=== PATIENT | male | born 1970 | race Caucasian/White ===

== ENCOUNTER 2018-06-08 16:19 | Emergency (ER) | payer BC ==
--- NOTE | 2018-06-08 16:38 | PDOC ---
History of Present Illness - General History Source: Patient Exam Limitations: No Limitations - History of Present Illness Initial Comments: 06/08/18 16:39 The patient is a 48 year old male with no significant PMH who presents to the ER complaining of chest pain for the past 3 days. Patient states he was tugging on his weight belt when he noticed left sided chest pain and felt a "pop." Patient reports the pain is exacerbated when rotating the left arm outward. The patient denies shortness of breath, headache and dizziness. Denies fever, chills, nausea, vomit, diarrhea and constipation. Denies dysuria, frequency, urgency and hematuria. Allergies: NKA Past surgical history: None reported. Social history: No reported alcohol, drug or cigarette use. <Meera Hampton - Last Filed: 06/08/18 16:48> <Cathie Barber - Last Filed: 06/08/18 17:47> - General Chief Complaint: Injury Stated Complaint: left chest injury Time Seen by Provider: 06/08/18 16:25 Past History <Meera Hampton - Last Filed: 06/08/18 16:48> - Past Medical History GI Disorders: Yes (H/O BILATERAL HERNIA) Hypercholesterolemia: Yes (NOT ON MEDS) - Surgical History Abdominal Surgery: Yes (HERNIA REPAIR) - Family Disease History Family Disease History: Diabetes: Mother - Immunization History Td Vaccination: (UNKOWN) Immunization Up to Date: Yes - Suicide/Smoking/Psychosocial Hx Smoking Status: No Smoking History: Former smoker Have you smoked in the past 12 months: No Number of Cigarettes Smoked Daily: 0 Hx Alcohol Use: No Substance Use Type: None Hx Substance Use Treatment: No <Cathie Barber - Last Filed: 06/08/18 17:47> - Past Medical History Allergies/Adverse Reactions: Allergies Allergy/AdvReac Type Severity Reaction Status Date / Time Penicillins Allergy Verified 06/08/18 16:20 Home Medications: Ambulatory Orders Ibuprofen [Motrin -] 600 mg PO TID #90 tablet 06/08/18 Review of Systems - Review of Systems Able to Perform ROS?: Yes Comments:: 06/08/18 16:46 ADULT ROS GENERAL/CONSTITUTIONAL: No fever or chills. No weakness. HEAD, EYES, EARS, NOSE AND THROAT: No change in vision. No ear pain or discharge. No sore throat. CARDIOVASCULAR: No shortness of breath. (+) Left sided chest pain. RESPIRATORY: No cough, wheezing, or hemoptysis. GASTROINTESTINAL: No nausea, vomiting, diarrhea or constipation. GENITOURINARY: No dysuria, frequency, or change in urination. MUSCULOSKELETAL: No joint or muscle swelling or pain. No neck or back pain. SKIN: No rash NEUROLOGIC: No headache, vertigo, loss of consciousness, or change in strength/ sensation. ENDOCRINE: No increased thirst. No abnormal weight change. HEMATOLOGIC/LYMPHATIC: No anemia, easy bleeding, or history of blood clots. ALLERGIC/IMMUNOLOGIC: No hives or skin allergy. <Meera Hampton - Last Filed: 06/08/18 16:48> *Physical Exam - Physical Exam Comments: 06/08/18 16:46 ADULT EXAM GENERAL: Awake, alert, and fully oriented, in no acute distress HEAD: No signs of trauma EYES: PERRLA, EOMI, sclera anicteric, conjunctiva clear ENT: Auricles normal inspection, hearing grossly normal, nares patent. Moist mucosa NECK: Normal ROM, supple, no lymphadenopathy, JVD, or masses LUNGS: Breath sounds equal, clear to auscultation bilaterally. No wheezes, and no crackles HEART: Regular rate and rhythm, normal S1 and S2, no murmurs, rubs or gallops. ( +) Mild left chest wall tenderness over the 4th and 5th rib at the costchondral junction. ABDOMEN: Soft, nontender, normoactive bowel sounds. No guarding, no rebound. No masses EXTREMITIES: Normal range of motion, no edema. No erythema or tenderness. DP/PT pulses 2+ and symmetric. Warm and well perfused. NEUROLOGICAL: Moves all extremities. Normal speech, normal gait SKIN: Warm, Dry, normal turgor, no rashes or lesions noted. <Meera Hampton - Last Filed: 06/08/18 16:48> Heart Score/ECG Review #1 ECG reviewed & interpreted by me at: 17:02 General ECG Interpretation: Sinus Rhythm, Normal Rate (79), Normal Intervals, No acute ischemic changes <Cathie Barber - Last Filed: 06/08/18 17:47> ED Treatment Course - RADIOLOGY Radiology Studies Ordered: Category Date Time Status CHEST PA & LAT [RAD] Stat Radiology 06/08/18 16:25 Ordered <Cathie Barber - Last Filed: 06/08/18 17:47> Medical Decision Making - Medical Decision Making 06/08/18 16:37 48 yo male with c/o left sided chest pain after pulling off his belt. was abducting his arm and rotating outward, felt pop in muscle in chest. and pain since. has been 3 days. on exam mild left chest wall ttp over 4 or 5 th rib at costchondral junction. plan xray r/o ptx, fx, msaids. if negative dc home. 06/08/18 17:45 xray negative. dc home with motrin, ekg unremarkable. <Cathie Barber - Last Filed: 06/08/18 17:47> *DC/Admit/Observation/Transfer - Attestations Scribe Attestion: 06/08/18 16:48 Documentation prepared by Meera Hampton, acting as district medical examiner for Cathie Barber MD. <Meera Hampton - Last Filed: 06/08/18 16:48> - Discharge Dispostion Decision to Admit order: No <Cathie Barber - Last Filed: 06/08/18 17:47> Diagnosis at time of Disposition: Chest wall muscle strain - Discharge Dispostion Disposition: HOME Condition at time of disposition: Improved - Prescriptions Prescriptions: Ibuprofen [Motrin -] 600 mg PO TID #90 tablet - Patient Instructions Printed Discharge Instructions: Costochondritis Additional Instructions: you can take ibuprofen 600 mg every 8 hrs as needed for pain . follow up with you primary doctor. your chest xray is negative for any broken ribs.
[2018-06-08] MEDS ORDERED: IBUPROFEN 600 MG TABLET (FP) PO ONE ×2 (16:46→16:57)
[2018-06-08 16:53] VITALS: BP 142/72; PULSE 79; TEMP 97.8; BMI 39.2
--- NOTE | 2018-06-09 10:44 | EKG ---
Test Reason : Blood Pressure : / mmHG Vent. Rate : 079 BPM Atrial Rate : 079 BPM P-R Int : 144 ms QRS Dur : 090 ms QT Int : 406 ms P-R-T Axes : 048 027 035 degrees QTc Int : 465 ms NORMAL SINUS RHYTHM NORMAL ECG NO PREVIOUS ECGS AVAILABLE Confirmed by Demarcus Taylor MD ([id number]) on 06/09/2018 10:44:17 AM Referred By: DR ROSS Confirmed By:Demarcus Taylor MD
== END 2018-06-08 17:58 | disposition home or self-care (01) ==
LOC: FER 16:19
DX: R07.89 Other chest pain (principal); Z87.891 Personal history of nicotine dependence; E78.00 Pure hypercholesterolemia, unspecified
CPT/HCPCS: 71046-TC-FY; 93005; 99282-25